=== PATIENT | female | born 1970 | race Hispanic/Latino ===

== ENCOUNTER 2017-09-11 02:56 | Inpatient (IN) | payer MEDICAID ==
[2017-09-11 02:56] VITALS: BMI 31.0
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
[2017-09-11] MEDS ORDERED: HYDROmorphone 1 mg/ml ISec IVP STA (04:02)
[2017-09-11] MEDS ORDERED: HYDROmorphone 1 mg/ml ISec ONE (04:03)
[2017-09-11] MEDS ORDERED: Benzoin Compound Tincture (60 ml) ONE (04:04)
[2017-09-11] MEDS ORDERED: Midazolam 2 MG/2 ML VIAL IVP ONE (04:17)
[2017-09-11] MEDS ORDERED: Ketamine 50 mg/ml Inj (10 ml) IV STA (04:18)
[2017-09-11] MEDS ORDERED: Midazolam 2 MG/2 ML VIAL ONE ×2 (04:21→12:15)
[2017-09-11] MEDS ORDERED: Ketamine 50 mg/ml Inj (10 ml) ONE (04:24)
[2017-09-11 06:23] LABS: BASO % 0.3 % (0.0-2.0); EOS % 0.1 % (0.0-4.0); HEMATOCRIT 42.4 % (34.0-47.0); LYMPH # 1.3 K/uL (1.0-4.3); LYMPH % 8.5 % (20.0-40.0); MEAN CELL VOLUME 90.2 fL (81.0-99.0); MEAN CORPUSCULAR HEMOGLOBIN 30.7 pg (27.0-31.0); MEAN PLATELET VOLUME 8.8 fL (7.2-11.7); MONO # 0.6 K/uL (0.0-0.8); MONO % 4.1 % (0.0-10.0); PLATELET COUNT 206 K/uL (130-400); RED CELL DISTRIBUTION WIDTH 12.7 % (11.5-14.5); WHITE BLOOD COUNT 15.5 K/uL (4.8-10.8)
[2017-09-11 06:43] LABS: ALB/GLOB RATIO 1.5 (1.0-2.1); ALKALINE PHOSPHATASE 121 U/L (38-126); ALT/SGPT 118 U/L (9-52); AST/SGOT 44 U/L (14-36); BILIRUBIN,TOTAL 0.5 mg/dL (0.2-1.3); BLOOD UREA NITROGEN 14 mg/dL (7-17); CALCIUM 8.1 mg/dl (8.6-10.4); CARBON DIOXIDE 24 mmol/L (22-30); CHLORIDE 102 mmol/L (98-107); GFR AFRICAN-AMERICAN > 60; GLUCOSE,RANDOM 376 mg/dL (65-105); POTASSIUM 4.1 mmol/L (3.6-5.2); SODIUM 136 mmol/L (132-148); TOTAL PROTEIN 6.5 g/dL (6.3-8.3)
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
[2017-09-11 07:01] LABS: NEUTROPHIL 85 % (50-75); TOTAL CELLS COUNTED 100
[2017-09-11] MEDS: HYDROmorphone 0.5 mg/0.5 ml ISec IVP PRN (08:36)
--- NOTE | 2017-09-11 09:26 | RAD ---
Chest x-ray two views History: Chest pain. Comparison: None available. Findings: Mild venous congestion. Heart size within normal limits. Degenerative changes in the spine and shoulders. Dislocated left shoulder joint. Impression: Mild venous congestion. Dislocated left shoulder joint.
[2017-09-11 10:47] LABS: RBC URINE 1 /hpf (0-3); URINE BILIRUBIN NEGATIVE (NEGATIVE); URINE BLOOD 1+ (NEGATIVE); URINE COLOR Yellow (YELLOW); URINE GLUCOSE (UA) 3+ mg/dL (Normal); URINE KETONE TRACE mg/dL (NEGATIVE); URINE LEUKOCYTE ESTERASE NEG Leu/uL (Negative); URINE PROTEIN NEGATIVE (NEGATIVE); URINE UROBILINOGEN NORMAL mg/dL (0.2-1.0); WBC URINE < 1 /hpf (0-5)
--- NOTE | 2017-09-11 11:21 | RAD ---
Left humerus 6 views History: Fracture. Comparison: None available. Findings: Complex fracture dislocation of the left proximal humerus with anterior inferior dislocation of the humeral head in relationship to the bony glenoid. Prominently displaced greater tuberosity fracture fragment which appears at the level of the bony glenoid. Acromioclavicular joint space appears preserved. Limited evaluation of the elbow joint space demonstrates prominent degenerative changes with bony spurring noted at the olecranon as well as the tip of the coronoid process. Impression: Complex fracture dislocation of the left proximal humerus with anterior inferior dislocation of the humeral head in relationship to the bony glenoid. Prominently displaced greater tuberosity fracture fragment which appears at the level of the bony glenoid. Acromioclavicular joint space appears preserved. Limited evaluation of the elbow joint space demonstrates prominent degenerative changes with bony spurring noted at the olecranon as well as the tip of the coronoid process.
--- NOTE | 2017-09-11 11:43 | RAD ---
Left shoulder single frontal view History: Postreduction. Comparison: 09/11/2017 Findings: Persistent anterior inferior dislocation of the left proximal humerus in relationship to bony glenoid. Displaced left greater tuberosity fracture fragment articulates with the bony glenoid. Acromioclavicular joint space appears preserved. Impression: Persistent anterior inferior dislocation of the left proximal humerus in relationship to bony glenoid. Displaced left greater tuberosity fracture fragment articulates with the bony glenoid.
[2017-09-11] MEDS ORDERED: Lidocaine 1%/Epinephrine 1:100000 30 ml vial IJ ONE (12:08)
[2017-09-11] MEDS ORDERED: Propofol 10 mg/ml Inj (20 ML) ONE (12:15)
[2017-09-11] MEDS ORDERED: Succinylcholine Chloride 20 mg/ml Syr (5 ml) IV ONE (12:16)
[2017-09-11] MEDS ORDERED: Rocuronium 10 mg/ml (10 ml) ONE ×2 (12:16→13:13)
[2017-09-11] MEDS ORDERED: Lidocaine Hydrochloride 5 ML INJ ONE (12:17)
[2017-09-11] MEDS ORDERED: Lactated Ringer's 1,000 ML IV ONE (12:30)
[2017-09-11] MEDS: Clindamycin 600mg/50ml NS 600 MG/50 ML BAG IVPB ONE ×2 (12:55→13:29)
[2017-09-11] MEDS ORDERED: Phenylephrine 10 mg/ml Inj ONE (13:10)
[2017-09-11] MEDS ORDERED: Clindamycin 600mg/50ml NS 600 MG/50 ML BAG IVPB ONE (14:24)
[2017-09-11] MEDS ORDERED: Bupivacaine HCl 0.5% PF (10 ml) Inj ONE ×2 (14:46)
[2017-09-11] MEDS ORDERED: Neostigmine Methylsulfate 3mg/3ml Syringe IV ONE (14:48)
[2017-09-11] MEDS ORDERED: HYDROmorphone 0.5 mg/0.5 ml ISec IVP PRN (14:53)
[2017-09-11] MEDS ORDERED: Dexamethasone 4 mg/1 ml IVP PRN (14:53)
[2017-09-11] MEDS: (Novolin R) Insulin Human Regular 100 units/ml vial SC SCH ×3 (15:13→21:31)
--- NOTE | 2017-09-11 15:19 | PCM.SURG1 ---
Surgeon's Initial Post Op Note - Surgeon's Notes Surgeon: margaret Clerk Telegraph Service: housekeeping aide Type of Anesthesia: General Endo Pre-Operative Diagnosis: fracture dislocation left shoulder Operative Findings: see dictation Post-Operative Diagnosis: same Operation Performed: ORIF L shoulder Specimen/Specimens Removed: none Estimated Blood Loss: EBL {In ML}: 500 Date of Surgery/Procedure: 09/10/17 Time of Surgery/Procedure: 12:00
--- NOTE | 2017-09-11 15:24 | RAD ---
PROCEDURE: Intraoperative Fluoroscopy. HISTORY: LEFT SHOULDER FX FINDINGS: Fluoroscopic assistance was provided for left proximal humeral fracture repair. Please refer to the operative report from
--- NOTE | 2017-09-11 15:35 | PCM.ANESB1 ---
Interscalene Block - Brachial Plexus Date of Procedure: 09/11/17 Anesthesiologist: óscar Pre-Procedure Diagnosis: left humeral shaft fx Procedure Performed: Interscalene Block of Brachial Plexus Left - Procedure Interscalene Block of Brachial Plexus: This procedure was explained to the patient that it is for post-operative pain management. Consent was obtained after a thorough discussion with the patient regarding the benefits and possible complications of local anesthetic block of the Brachial Plexus at the Interscalene area. The patient was brought to the Operating Room and standard monitors were applied. Time out was held with the circulating nurse to confirm the correct surgery and appropriate block. After applying Oxygen by nasal cannula and administering IV Sedation, the patient's head was gently rotated away from the operative shoulder and the anterior scalene groove was carefully palpated. The ultrasound transducer was then applied to the skin in the transverse plane and the brachial plexus was visualized lateral to the carotid artery and in between the anterior and middle scalene muscles. After identification,the anterior lateral portion of the neck was prepped with Betadine solution three times and Lidocaine 1% was injected subcutaneously for topical analgesia. At this point, a # 22 gauge Stimuplex 2 inches insulated needle was inserted into the interscalene groove and directed in a caudal and midline direction. The needle was inserted lateral to the ultrasound transducer in-plane towards the brachial plexus in a [id number] direction. Needle advancement was performed carefully under direct ultrasound visualization.. After repeated negative aspiration,__5___cc of__.5___, bupivicaine were injected and this was followed with _20____cc of ___.5__% _bupivicaine ____. Under ultrasound guidance the local anesthetics were observed surrounding the roots of the brachial plexus. The needle was removed intact and sterile dressing was applied. The patient had stable vital signs, was conscious and in no apparent distress. The patient tolerated the interscalene block of the bracheal plexus well with stable vital signs and was prepared for subsequent surgery.
[2017-09-11 16:23] VITALS: RESP 20
--- NOTE | 2017-09-11 17:17 | RAD ---
Left shoulder two views History: Postoperative evaluation. Comparison: None available. Findings: Side plate with screw fixation of a left proximal humeral fracture. Humeral head appears located. Acromioclavicular joint space appears preserved. Impression: Postop changes.
[2017-09-12] MEDS: HYDROmorphone 0.5 mg/0.5 ml ISec IVP PRN (05:32)
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
[2017-09-12] MEDS: (Novolin R) Insulin Human Regular 100 units/ml vial SC SCH ×4 (08:31→21:38)
[2017-09-12] MEDS ORDERED: HYDROmorphone 0.5 mg/0.5 ml ISec IVP PRN (09:40)
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
[2017-09-12 14:59] LABS: CHOLESTEROL 147 mg/dL (0-199)
[2017-09-12] MEDS ORDERED: Oxycodone/Acetaminophen 5/325 mg Tab PO PRN (15:42)
--- NOTE | 2017-09-12 15:46 | CP.PCM.PN ---
Subjective - Date & Time of Evaluation Date of Evaluation: 09/12/17 Time of Evaluation: 15:43 - Subjective Subjective: Patient states pain is getting worse (block wearing off) c/o tingling to outer arm. Denies CP/SOB dizziness. Objective - Vital Signs/Intake and Output Vital Signs (last 24 hours): Temp Pulse Resp BP Pulse Ox 98.0 F 98 H 20 124/76 95 09/12/17 07:56 09/12/17 07:56 09/12/17 07:56 09/12/17 07:56 09/12/17 07:56 - Medications Medications: Current Medications Hydromorphone HCl (Dilaudid) 0.5 mg IVP Q4H PRN PRN Reason: Pain, severe (8-10) Last Admin: 09/12/17 11:02 Dose: 0.5 mg Insulin Human Regular (Novolin R) 0 unit SC ACHS SO PRN Reason: Protocol Last Admin: 09/12/17 12:14 Dose: 3 unit Ketorolac Tromethamine (Toradol) 30 mg IVP Q6 [facility] Lisinopril (Zestril) 2.5 mg PO DAILY [facility] Oxycodone/Acetaminophen (Percocet 5/325 Mg Tab) 2 tab PO Q4H PRN PRN Reason: Pain, moderate (4-7) Stop: 09/15/17 15:43 Pantoprazole Sodium (Protonix Inj) 40 mg IVP DAILY [facility] Last Admin: 09/12/17 10:10 Dose: 40 mg Rosuvastatin Calcium (Crestor) 2.5 mg PO HS [facility] Tramadol HCl (Ultram) 50 mg PO TID PRN PRN Reason: Pain, moderate (4-7) Last Admin: 09/12/17 10:08 Dose: 50 mg - Labs Labs: 09/11/17 06:20 09/11/17 06:20 PT 11.6 SECONDS (9.7-12.2) 09/11/17 06:20 INR 1.0 09/11/17 06:20 - Extremities Exam Additional comments: +ROM fitgners/wrist, sensation intacty to rad/med/ulnar nerve, numb to ax nerve lateral arm. +radial pulse Assessment and Plan (1) Fracture of proximal end of left humerus Assessment & Plan: POD# 1 s/p ORIF -lateral arm numbness to be monitored, poss residual from block -orthopedically stbale -sling pain meds pt/ot d/w Dr. Bradley to f/u in offce next tuesday Status: Acute (2) Shoulder dislocation Status: Acute
[2017-09-12 17:46] LABS: HEMATOCRIT 35.9 % (34.0-47.0); MEAN CELL VOLUME 91.1 fL (81.0-99.0); MEAN CORPUSCULAR HEMOGLOBIN 30.6 pg (27.0-31.0); MEAN CORPUSCULAR HGB CONC 33.6 g/dL (33.0-37.0); WHITE BLOOD COUNT 14.1 K/uL (4.8-10.8)
[2017-09-12 18:57] LABS: BLOOD UREA NITROGEN 9 mg/dL (7-17); CALCIUM 7.6 mg/dl (8.6-10.4); CARBON DIOXIDE 28 mmol/L (22-30); CHLORIDE 98 mmol/L (98-107); GFR AFRICAN-AMERICAN > 60; GLUCOSE,RANDOM 242 mg/dL (65-105); POTASSIUM 3.7 mmol/L (3.6-5.2); SODIUM 132 mmol/L (132-148)
[2017-09-12] MEDS: Rosuvastatin Calcium 2.5 mg Tab PO SCH (21:35)
--- NOTE | 2017-09-12 22:17 | CARD ---
APPROVED REPORT EKG Measurement Heart [id number] ID [id number] <Conclusion> Normal sinus rhythm with sinus arrhythmia Possible Left atrial enlargement Possible Anterior infarct, age undetermined Abnormal ECG
--- NOTE | 2017-09-13 06:51 | CP.PCM.PN ---
<Ning Chavez - Last Filed: 09/13/17 07:44> Subjective - Date & Time of Evaluation Date of Evaluation: 09/13/17 Time of Evaluation: 06:47 - Subjective Subjective: PGY2 progress note for cardiology, Dr. iBlly Pt is seen and examined at bedside. No acute events overnight. Pt continues to complain of left shoulder pain and numbness over left shoulder. denies having any CP, SOB, abd pain, N/v/D/C, LE pain or swelling. 12 point ROS are negative except for the above mentioned. Objective - Vital Signs/Intake and Output Vital Signs (last 24 hours): Temp Pulse Resp BP Pulse Ox 98.6 F 93 H 20 109/70 96 09/12/17 23:40 09/12/17 23:40 09/12/17 23:40 09/12/17 23:40 09/12/17 23:40 Intake and Output: 09/12/17 09/13/17 18:59 06:59 Intake Total 0 Balance 0 - Medications Medications: Current Medications Calcium/Vitamin D (Oscal-D 250 Mg-125 Units Tab) 1 tab PO DAILY [facility] Gabapentin (Neurontin) 600 mg PO TID [facility] Hydromorphone HCl (Dilaudid) 0.5 mg IVP Q4H PRN PRN Reason: Pain, severe (8-10) Last Admin: 09/12/17 11:02 Dose: 0.5 mg Insulin Human Regular (Novolin R) 0 unit SC ACHS [facility] PRN Reason: Protocol Last Admin: 09/12/17 21:38 Dose: Not Given Ketorolac Tromethamine (Toradol) 30 mg IVP Q6 [facility] Last Admin: 09/13/17 06:24 Dose: 30 mg Lidocaine (Lidoderm) 1 ea TD DAILY [facility] Lisinopril (Zestril) 2.5 mg PO DAILY [facility] Oxycodone/Acetaminophen (Percocet 5/325 Mg Tab) 2 tab PO Q4H PRN PRN Reason: Pain, moderate (4-7) Stop: 09/15/17 15:43 Pantoprazole Sodium (Protonix Inj) 40 mg IVP DAILY [facility] Last Admin: 09/12/17 10:10 Dose: 40 mg Rosuvastatin Calcium (Crestor) 2.5 mg PO HS [facility] Last Admin: 09/12/17 21:35 Dose: 2.5 mg Tramadol HCl (Ultram) 50 mg PO TID PRN PRN Reason: Pain, moderate (4-7) Last Admin: 09/12/17 19:51 Dose: 50 mg - Labs Labs: 09/12/17 14:29 09/12/17 14:29 PT 11.6 SECONDS (9.7-12.2) 09/11/17 06:20 INR 1.0 09/11/17 06:20 - Constitutional Appears: Non-toxic, No Acute Distress - Head Exam Head Exam: ATRAUMATIC, NORMAL INSPECTION - ENT Exam ENT Exam: Mucous Membranes Moist - Respiratory Exam Respiratory Exam: Clear to Ausculation Bilateral, NORMAL BREATHING PATTERN. absent: Rales, Rhonchi, Wheezes - Cardiovascular Exam Cardiovascular Exam: REGULAR RHYTHM, +S1, +S2. absent: Gallop, Rubs, Murmur - GI/Abdominal Exam GI & Abdominal Exam: Soft, Normal Bowel Sounds. absent: Distended, Firm, Guarding, Rigid, Tenderness, Organomegaly - Extremities Exam Extremities Exam: absent: Pedal Edema, Tenderness - Neurological Exam Neurological Exam: Alert, Awake, Oriented x3 - Psychiatric Exam Psychiatric exam: Normal Affect, Normal Mood - Skin Skin Exam: Dry, Intact, Normal Color, Warm Assessment and Plan - Assessment and Plan (Free Text) Assessment: 46 year old female with past medical history of diabetes and HTN is being seen for poor R wave progression noted on EKG in ED. 1. EKG changes R/O CAD - Poor r wave progression likely 2/2 poor lead placement - Echo pending 2. DM - Hgb A1c is noted ot be 10.1 - LDL 101, cholestrol 147, Tg 127, HDL 37 - ASCVD risk: 4.2% risk of cardiovascular event in 10 yrs - ISS - Accuchecks - Pt started on ACEI and statin 3. Left humeral fracture s/p ORIF POD #2 - Continue pain management per ortho 4. Tobacco abuse - discussed risks of tobacco abuse and recommended cessation All recommendations and orders per Dr. Billy <Mahendra Billy - Last Filed: 09/14/17 00:54> Objective - Vital Signs/Intake and Output Vital Signs (last 24 hours): Temp Pulse Resp BP Pulse Ox 98.5 F 81 20 114/69 97 09/13/17 23:25 09/13/17 23:25 09/13/17 23:25 09/13/17 23:25 09/13/17 23:25 Intake and Output: 09/13/17 09/14/17 18:59 06:59 Intake Total 1640 Balance 1640 - Medications Medications: Current Medications Calcium/Vitamin D (Oscal-D 250 Mg-125 Units Tab) 1 tab PO DAILY [facility] Last Admin: 09/13/17 10:08 Dose: 1 tab Fluconazole (Diflucan) 150 mg PO DAILY [facility] Stop: 09/15/17 10:00 Last Admin: 09/13/17 19:29 Dose: 150 mg Gabapentin (Neurontin) 600 mg PO TID [facility] Last Admin: 09/13/17 17:29 Dose: 600 mg Hydromorphone HCl (Dilaudid) 0.5 mg IVP Q4H PRN PRN Reason: Pain, severe (8-10) Last Admin: 09/13/17 13:16 Dose: 0.5 mg Sodium Chloride (Sodium Chloride 0.9%) 1,000 mls @ 80 mls/hr IV .[id number] [facility] Last Admin: 09/14/17 00:44 Dose: 80 mls/hr Insulin Human Regular (Novolin R) 0 unit SC ACHS [facility] PRN Reason: Protocol Last Admin: 09/13/17 21:45 Dose: Not Given Ketorolac Tromethamine (Toradol) 30 mg IVP Q6 [facility] Last Admin: 09/14/17 00:40 Dose: Not Given Lidocaine (Lidoderm) 1 ea TD DAILY [facility] Last Admin: 09/13/17 14:34 Dose: 1 ea Lisinopril (Zestril) 2.5 mg PO DAILY [facility] Last Admin: 09/13/17 10:07 Dose: 2.5 mg Oxycodone/Acetaminophen (Percocet 5/325 Mg Tab) 2 tab PO Q4H PRN PRN Reason: Pain, moderate (4-7) Stop: 09/15/17 15:43 Pantoprazole Sodium (Protonix Inj) 40 mg IVP DAILY [facility] Last Admin: 09/13/17 10:08 Dose: 40 mg Rosuvastatin Calcium (Crestor) 2.5 mg PO HS [facility] Last Admin: 09/13/17 21:45 Dose: Not Given Tramadol HCl (Ultram) 50 mg PO TID PRN PRN Reason: Pain, moderate (4-7) Last Admin: 09/13/17 19:28 Dose: 50 mg - Labs Labs: 09/13/17 08:17 09/13/17 08:16 PT 11.6 SECONDS (9.7-12.2) 09/11/17 06:20 INR 1.0 09/11/17 06:20 Attending/Attestation - Attestation I have personally seen and examined this patient.: Yes I have fully participated in the care of the patient.: Yes I have reviewed all pertinent clinical information, including history, physical exam and plan: Yes
--- NOTE | 2017-09-13 07:49 | OP ---
PROCEDURE DATE: 09/11/2017 PREOPERATIVE DIAGNOSIS: Displaced left proximal shaft fracture with shoulder. POSTOPERATIVE DIAGNOSIS: Displaced left proximal shaft fracture with shoulder. PROCEDURES: 1. Left shoulder open reduction and internal fixation greater tuberosity requiring Synthes . 2. Fluoroscopy greater than . SURGEON: Alex Bradley MD. GARBAGE COLLECTOR: and Podiatry. TYPE OF ANESTHESIA: General. BLOOD LOSS: 500 mL. SPECIMENS: None. COMPLICATIONS: None. DISPOSITION: Stable to recovery room. INDICATIONS: This is a 46 year old female who ____ left shoulder and ____. Informed consent was obtained. DESCRIPTION OF PROCEDURE: The patient was brought to the operating room and placed supine on the operating room table in a beach-chair. After prophylactic antibiotics were given, the left upper extremity was prepped and draped in the standard surgical fashion. A deltopectoral line of incision was outlined. Incision was made on the skin only. All superficial veins were cauterized. Incision was carried down after identifying ____ with blunt dissection. The fracture zone was identified. There was____ abraded at the greater tuberosity level____. Greater tuberosity humeral head ____. After reduction was confirmed, 3.5 cortical screws were placed into the distal , compressing the fascia anatomical position. After this, proximal locking holes were drilled with locking screws in AO standard fashion. Those screws were measured to appropriate length. No screw penetrance was identified ____. After these were placed, the shoulder was again taken through full range of motion and ____ rotation. Fluoroscopy then confirmed proper alignment of the shoulder joint and anatomic . The stay sutures were tied back adding additional stability to the ____ supraspinatus of the rotator cuff . The wound was then copiously irrigated. Hemostasis was obtained with electrocautery. Deep layers of the wound were closed with 2 0 Vicryl interrupted sutures followed by 2 0 subcuticular suture and 3 0 running Monocryl followed by stefanie for the skin. Steri Strips were applied and sterile dressing. The patient was placed into a . The patient tolerated the ____left upper extremity . Due to the patient's morbid obesity, this procedure was more difficult than the standard shoulder surgery and this required extra time doing prepping and draping as well as an extended operative time . Alex Bradley MD
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
[2017-09-13 08:31] LABS: BASO % 0.4 % (0.0-2.0); EOS # 0.1 K/uL (0.0-0.7); EOS % 1.1 % (0.0-4.0); HEMATOCRIT 34.2 % (34.0-47.0); LYMPH # 1.9 K/uL (1.0-4.3); LYMPH % 17.3 % (20.0-40.0); MEAN CELL VOLUME 90.3 fL (81.0-99.0); MEAN CORPUSCULAR HEMOGLOBIN 31.5 pg (27.0-31.0); MEAN CORPUSCULAR HGB CONC 34.9 g/dL (33.0-37.0); MEAN PLATELET VOLUME 8.8 fL (7.2-11.7); MONO # 0.8 K/uL (0.0-0.8); MONO % 7.7 % (0.0-10.0); RED CELL DISTRIBUTION WIDTH 12.8 % (11.5-14.5); WHITE BLOOD COUNT 10.8 K/uL (4.8-10.8)
[2017-09-13] MEDS: (Novolin R) Insulin Human Regular 100 units/ml vial SC SCH ×4 (08:32→21:45)
[2017-09-13 09:03] LABS: ALB/GLOB RATIO 0.9 (1.0-2.1); ALKALINE PHOSPHATASE 82 U/L (38-126); ALT/SGPT 69 U/L (9-52); AST/SGOT 27 U/L (14-36); BILIRUBIN,TOTAL 0.7 mg/dL (0.2-1.3); BLOOD UREA NITROGEN 10 mg/dL (7-17); CALCIUM 7.7 mg/dl (8.6-10.4); CARBON DIOXIDE 28 mmol/L (22-30); CHLORIDE 96 mmol/L (98-107); GFR AFRICAN-AMERICAN > 60; GLUCOSE,RANDOM 251 mg/dL (65-105); POTASSIUM 3.7 mmol/L (3.6-5.2); SODIUM 128 mmol/L (132-148); TOTAL PROTEIN 6.7 g/dL (6.3-8.3)
[2017-09-13] MEDS: Lidocaine 5% Patch TD SCH ×2 (10:07→14:34)
[2017-09-13] MEDS: Calcium-Vit D 250 mg-125 Units Tab UD PO SCH (10:08)
[2017-09-13] MEDS: Sodium Chloride 0.9% 1,000 ML IV SCH (11:31)
[2017-09-13 16:14] VITALS: O2SAT 97
[2017-09-13] MEDS: Rosuvastatin Calcium 2.5 mg Tab PO SCH ×2 (19:30→21:45)
[2017-09-14] MEDS: Sodium Chloride 0.9% 1,000 ML IV SCH ×2 (00:44→14:51)
--- NOTE | 2017-09-14 03:49 | PN ---
DATE: 09/13/2017 SUBJECTIVE: The patient is seen and examined on the bedside. Looking anxious because of pain in the left shoulder and numbness around the shoulder. Denies having chest pain, shortness of breath. No abdominal pain, nausea, vomiting, or diarrhea. No hematuria or hematochezia. No swelling of the lower extremities. REVIEW OF SYSTEMS: A 12-point review of systems is negative except for the above mentioned. No fever. No chills. PHYSICAL EXAMINATION: VITAL SIGNS: Temperature 98.6, pulse 93, respiratory rate 20, blood pressure 109/70, and pulse oximetry 96. HEENT: Head: Normocephalic, atraumatic. Eyes: PERRLA. Extraocular muscles intact. Conjunctivae clear. Nose patent. Mucous membranes moist. NECK: Supple. No carotid bruit. No JVD or thyromegaly. CHEST: Bilaterally symmetrical. HEART: S1 and S2 positive. LUNGS: Clear to auscultation. ABDOMEN: Soft. Bowel sounds present. No organomegaly. EXTREMITIES: No edema. No cyanosis. NEUROLOGIC: The patient is awake and alert. Moving all 4 extremities except left upper extremity. MEDICATIONS: Vitamin D, Dilaudid, insulin, Toradol, Lidoderm, Zestril, oxycodone, pantoprazole, Crestor, and tramadol. LABORATORY DATA: White blood cells 14.1, hemoglobin 12.1, hematocrit 35.9, platelets 190. Sodium 132, potassium 3.7, BUN 9, creatinine 0.5, glucose 242. ASSESSMENT AND PLAN: Ms. Brandy Carter is a 46-year-old lady with leukocytosis, hyperglycemia with history of diabetes mellitus, hypotension, has poor R-wave progression noted on EKG in Emergency Department, rule out coronary artery disease. Echocardiography done, result are pending. Hemoglobin A1c is 10.1 and it shows uncontrolled diabetes mellitus type 2. Electrical Integrator, Dr. Mahendra Billy, is on the case. He started the patient on angiotensin-converting enzyme inhibitors and statin. Left humeral fracture status post open reduction internal fixation postoperative day #2. Continue pain management per Orthopedics and physical therapy as per Orthopedics. The patient is still able to move her hand and h/o tobacco abuse, urged to quit smoking. The patient was seen by the Orthopedics, by Dr. Alex Bradley. The patient's block is wearing off. May be she is getting pain. Surgery was done by Dr. Kelsey for displaced shoulder, and the patient's fracture of the proximal and of the left humerus. The patient still has sling. Gastrointestinal and deep-vein thrombosis prophylaxis. The patient was seen and examined on 09/13/2017. Ese Sandoval MD MTDD
[2017-09-14 06:34] LABS: HEMATOCRIT 32.7 % (34.0-47.0); MEAN CELL VOLUME 90.3 fL (81.0-99.0); MEAN CORPUSCULAR HEMOGLOBIN 31.3 pg (27.0-31.0); MEAN CORPUSCULAR HGB CONC 34.7 g/dL (33.0-37.0); MEAN PLATELET VOLUME 8.9 fL (7.2-11.7); RED CELL DISTRIBUTION WIDTH 12.8 % (11.5-14.5); WHITE BLOOD COUNT 10.2 K/uL (4.8-10.8)
[2017-09-14 07:03] LABS: ALB/GLOB RATIO 1.2 (1.0-2.1); ALKALINE PHOSPHATASE 77 U/L (38-126); ALT/SGPT 45 U/L (9-52); AST/SGOT 27 U/L (14-36); BILIRUBIN,TOTAL 0.6 mg/dL (0.2-1.3); BLOOD UREA NITROGEN 14 mg/dL (7-17); CALCIUM 7.7 mg/dl (8.6-10.4); CARBON DIOXIDE 25 mmol/L (22-30); CHLORIDE 99 mmol/L (98-107); GFR AFRICAN-AMERICAN > 60; GLUCOSE,RANDOM 323 mg/dL (65-105); POTASSIUM 3.8 mmol/L (3.6-5.2); SODIUM 127 mmol/L (132-148); TOTAL PROTEIN 5.3 g/dL (6.3-8.3)
[2017-09-14 07:45] VITALS: TEMP 97.5
--- NOTE | 2017-09-14 08:51 | CP.PCM.PN ---
<Ning Chavez - Last Filed: 09/14/17 08:52> Subjective - Date & Time of Evaluation Date of Evaluation: 09/14/17 Time of Evaluation: 08:52 - Subjective Subjective: PGY2 progress note for cardiology, Dr. Billy Pt is seen and examined at bedside. No acute events overnight. Pt was unable to complete echo yesterday due to immobility and pain of left arm. Pt denies having any CP, SOB, abd pain, N/V/D/C. Continues to c/o left shoulder pain. 12 point ROS negative except for the above mentioned. Objective - Vital Signs/Intake and Output Vital Signs (last 24 hours): Temp Pulse Resp BP Pulse Ox 97.5 F L 77 20 180/69 H 97 09/14/17 07:05 09/14/17 07:05 09/14/17 07:05 09/14/17 07:05 09/14/17 07:05 Intake and Output: 09/14/17 09/14/17 06:59 18:59 Intake Total 2580 Balance 2580 - Medications Medications: Current Medications Calcium/Vitamin D (Oscal-D 250 Mg-125 Units Tab) 1 tab PO DAILY [facility] Last Admin: 09/13/17 10:08 Dose: 1 tab Fluconazole (Diflucan) 150 mg PO DAILY SO Stop: 09/15/17 10:00 Last Admin: 09/13/17 19:29 Dose: 150 mg Gabapentin (Neurontin) 600 mg PO TID [facility] Last Admin: 09/13/17 17:29 Dose: 600 mg Hydromorphone HCl (Dilaudid) 0.5 mg IVP Q4H PRN PRN Reason: Pain, severe (8-10) Last Admin: 09/13/17 13:16 Dose: 0.5 mg Sodium Chloride (Sodium Chloride 0.9%) 1,000 mls @ 80 mls/hr IV .[id number] [facility] Last Admin: 09/14/17 00:44 Dose: 80 mls/hr Insulin Human Regular (Novolin R) 0 unit SC ACHS SO PRN Reason: Protocol Last Admin: 09/13/17 21:45 Dose: Not Given Ketorolac Tromethamine (Toradol) 30 mg IVP Q6 [facility] Last Admin: 09/14/17 02:24 Dose: 30 mg Lidocaine (Lidoderm) 1 ea TD DAILY [facility] Last Admin: 09/13/17 14:34 Dose: 1 ea Lisinopril (Zestril) 2.5 mg PO DAILY [facility] Last Admin: 09/13/17 10:07 Dose: 2.5 mg Oxycodone/Acetaminophen (Percocet 5/325 Mg Tab) 2 tab PO Q4H PRN PRN Reason: Pain, moderate (4-7) Stop: 09/15/17 15:43 Pantoprazole Sodium (Protonix Inj) 40 mg IVP DAILY [facility] Last Admin: 09/13/17 10:08 Dose: 40 mg Rosuvastatin Calcium (Crestor) 2.5 mg PO HS [facility] Last Admin: 09/13/17 21:45 Dose: Not Given Tramadol HCl (Ultram) 50 mg PO TID PRN PRN Reason: Pain, moderate (4-7) Last Admin: 09/13/17 19:28 Dose: 50 mg - Labs Labs: 09/14/17 06:26 09/14/17 06:26 PT 11.6 SECONDS (9.7-12.2) 09/11/17 06:20 INR 1.0 09/11/17 06:20 - Constitutional Appears: Non-toxic, No Acute Distress - Head Exam Head Exam: ATRAUMATIC - ENT Exam ENT Exam: Mucous Membranes Moist - Respiratory Exam Respiratory Exam: Clear to Ausculation Bilateral, NORMAL BREATHING PATTERN. absent: Accessory Muscle Use, Rales, Rhonchi, Wheezes, Respiratory Distress - Cardiovascular Exam Cardiovascular Exam: REGULAR RHYTHM, +S1, +S2. absent: Gallop, Rubs, Murmur - GI/Abdominal Exam GI & Abdominal Exam: Soft, Normal Bowel Sounds. absent: Distended, Firm, Guarding, Rigid, Tenderness, Organomegaly - Extremities Exam Extremities Exam: absent: Pedal Edema, Tenderness - Neurological Exam Neurological Exam: Alert, Awake, Oriented x3 - Psychiatric Exam Psychiatric exam: Normal Affect, Normal Mood - Skin Skin Exam: Dry, Intact, Normal Color, Warm Assessment and Plan - Assessment and Plan (Free Text) Assessment: 46 year old female with past medical history of diabetes and HTN is being seen for poor R wave progression noted on EKG in ED. 1. EKG changes R/O CAD - Poor r wave progression likely 2/2 poor lead placement 2. DM - Hgb A1c is noted ot be 10.1 - LDL 101, cholestrol 147, Tg 127, HDL 37 - ASCVD risk: 4.2% risk of cardiovascular event in 10 yrs - ISS - Accuchecks - Continue ACEI and statin 3. Left humeral fracture s/p ORIF POD #2 - Continue pain management per ortho 4. Tobacco abuse - discussed risks of tobacco abuse and recommended cessation All recommendations and orders per Dr. Billy <Mahendra Billy - Last Filed: 09/14/17 13:13> Objective - Vital Signs/Intake and Output Vital Signs (last 24 hours): Temp Pulse Resp BP Pulse Ox 97.5 F L 70 20 116/74 97 09/14/17 07:05 09/14/17 10:45 09/14/17 07:05 09/14/17 10:45 09/14/17 07:05 Intake and Output: 09/14/17 09/14/17 06:59 18:59 Intake Total 2580 Balance 2580 - Medications Medications: Current Medications Calcium/Vitamin D (Oscal-D 250 Mg-125 Units Tab) 1 tab PO DAILY [facility] Last Admin: 09/14/17 10:21 Dose: 1 tab Fluconazole (Diflucan) 150 mg PO DAILY [facility] Stop: 09/15/17 10:00 Last Admin: 09/14/17 10:23 Dose: 150 mg Gabapentin (Neurontin) 600 mg PO TID [facility] Last Admin: 09/14/17 10:20 Dose: 600 mg Hydromorphone HCl (Dilaudid) 0.5 mg IVP Q4H PRN PRN Reason: Pain, severe (8-10) Last Admin: 09/13/17 13:16 Dose: 0.5 mg Sodium Chloride (Sodium Chloride 0.9%) 1,000 mls @ 80 mls/hr IV .[id number] [facility] Last Admin: 09/14/17 00:44 Dose: 80 mls/hr Insulin Human Regular (Novolin R) 0 unit SC ACHS SO PRN Reason: Protocol Last Admin: 09/14/17 11:57 Dose: 2 unit Ketorolac Tromethamine (Toradol) 30 mg IVP Q6 [facility] Last Admin: 09/14/17 12:43 Dose: Not Given Lidocaine (Lidoderm) 1 ea TD DAILY [facility] Last Admin: 09/14/17 10:28 Dose: 1 ea Lisinopril (Zestril) 2.5 mg PO DAILY [facility] Last Admin: 09/14/17 10:21 Dose: 2.5 mg Oxycodone/Acetaminophen (Percocet 5/325 Mg Tab) 2 tab PO Q4H PRN PRN Reason: Pain, moderate (4-7) Stop: 09/15/17 15:43 Pantoprazole Sodium (Protonix Inj) 40 mg IVP DAILY [facility] Last Admin: 09/14/17 10:21 Dose: 40 mg Rosuvastatin Calcium (Crestor) 2.5 mg PO HS [facility] Last Admin: 09/13/17 21:45 Dose: Not Given Tramadol HCl (Ultram) 50 mg PO TID PRN PRN Reason: Pain, moderate (4-7) Last Admin: 09/13/17 19:28 Dose: 50 mg - Labs Labs: 09/14/17 06:26 09/14/17 06:26 PT 11.6 SECONDS (9.7-12.2) 09/11/17 06:20 INR 1.0 09/11/17 06:20 Attending/Attestation - Attestation I have personally seen and examined this patient.: Yes I have fully participated in the care of the patient.: Yes I have reviewed all pertinent clinical information, including history, physical exam and plan: Yes Notes (Text): 09/14/17 13:13 outpt f/u for echo
[2017-09-14] MEDS: (Novolin R) Insulin Human Regular 100 units/ml vial SC SCH ×2 (09:02→11:57)
[2017-09-14] MEDS: Calcium-Vit D 250 mg-125 Units Tab UD PO SCH (10:21)
[2017-09-14] MEDS: Lidocaine 5% Patch TD SCH (10:28)
[2017-09-14 10:45] VITALS: BP 116/74; PULSE 70
--- NOTE | 2017-09-14 14:36 | CP.PCM.PN ---
Subjective - Date & Time of Evaluation Date of Evaluation: 09/14/17 Time of Evaluation: 14:51 - Subjective Subjective: Patient states pain is improving. She says she still has some numbness in her outer arm, no change. She requests work note to return for 2 days, then is off for 10 days. 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 Work note given to return on 09/15 with restrictions of no use of left arm, and sling at all time. Patient instructed to remove sling only for bathing. Pt has f /u appt on 09/[address] Bradley Objective - Vital Signs/Intake and Output Vital Signs (last 24 hours): Temp Pulse Resp BP Pulse Ox 97.5 F L 70 20 116/74 97 09/14/17 07:05 09/14/17 10:45 09/14/17 07:05 09/14/17 10:45 09/14/17 07:05 Intake and Output: 09/14/17 09/14/17 06:59 18:59 Intake Total 2580 Balance 2580 - Medications Medications: Current Medications Calcium/Vitamin D (Oscal-D 250 Mg-125 Units Tab) 1 tab PO DAILY [facility] Last Admin: 09/14/17 10:21 Dose: 1 tab Fluconazole (Diflucan) 150 mg PO DAILY [facility] Stop: 09/15/17 10:00 Last Admin: 09/14/17 10:23 Dose: 150 mg Gabapentin (Neurontin) 600 mg PO TID [facility] Last Admin: 09/14/17 13:40 Dose: 600 mg Hydromorphone HCl (Dilaudid) 0.5 mg IVP Q4H PRN PRN Reason: Pain, severe (8-10) Last Admin: 09/13/17 13:16 Dose: 0.5 mg Sodium Chloride (Sodium Chloride 0.9%) 1,000 mls @ 80 mls/hr IV .[id number] [facility] Last Admin: 09/14/17 00:44 Dose: 80 mls/hr Insulin Human Regular (Novolin R) 0 unit SC ACHS SO PRN Reason: Protocol Last Admin: 09/14/17 11:57 Dose: 2 unit Ketorolac Tromethamine (Toradol) 30 mg IVP Q6 [facility] Last Admin: 09/14/17 12:43 Dose: Not Given Lidocaine (Lidoderm) 1 ea TD DAILY [facility] Last Admin: 09/14/17 10:28 Dose: 1 ea Lisinopril (Zestril) 2.5 mg PO DAILY [facility] Last Admin: 09/14/17 10:21 Dose: 2.5 mg Oxycodone/Acetaminophen (Percocet 5/325 Mg Tab) 2 tab PO Q4H PRN PRN Reason: Pain, moderate (4-7) Stop: 09/15/17 15:43 Pantoprazole Sodium (Protonix Inj) 40 mg IVP DAILY [facility] Last Admin: 09/14/17 10:21 Dose: 40 mg Rosuvastatin Calcium (Crestor) 2.5 mg PO HS [facility] Last Admin: 09/13/17 21:45 Dose: Not Given Tramadol HCl (Ultram) 50 mg PO TID PRN PRN Reason: Pain, moderate (4-7) Last Admin: 09/13/17 19:28 Dose: 50 mg - Labs Labs: 09/14/17 06:26 09/14/17 06:26 PT 11.6 SECONDS (9.7-12.2) 09/11/17 06:20 INR 1.0 09/11/17 06:20 - Extremities Exam Additional comments: LUE: dressing changed. Incision intact, dry, no erythema, new dressing applied. Paresthesias to lat shoulder, otherwise intat. +ROM fingers/wrist, +radial pulse Assessment and Plan (1) Fracture of proximal end of left humerus Assessment & Plan: POD#3 s/p left prox humerus ORIF -ortho stable for d/c home -return to work only with strict restrictions -patient states she tolerates oxycodone better than percocet and vicodin, rx given -advised patient not to take narcotics if she will be working or driving, and that she can take motrin during the day [place] [employer] reviewed, last rx november 2016 -Patient counseled on the risks of addiction, physical or psychological dependence, and overdose associated with opioid drugs and the danger of taking opioid drugs with alcohol and other central nervous system depressants, and cautioned patient on storage and disposal. Status: Acute (2) Shoulder dislocation Status: Acute
--- NOTE | 2017-09-14 15:07 | CP.PCM.PN ---
Subjective - Date & Time of Evaluation Date of Evaluation: 09/14/17 Time of Evaluation: 11:45 - Subjective Subjective: NATIONAL ACCOUNT REPRESENTATIVE NOTES Pt seen today , denies any chest pain, sob, c/o pain to the Left UE, controlled with pain medication s/p left prox humerus ORIF,POD#3 seen by ortho cleared for discharge home today and f/u with Dr. Kelsey office on seen by Reina today stable for discharge home today and f/u with Dr. Huang office on 09/20 Objective - Vital Signs/Intake and Output Vital Signs (last 24 hours): Temp Pulse Resp BP Pulse Ox 97.5 F L 70 20 116/74 97 09/14/17 07:05 09/14/17 10:45 09/14/17 07:05 09/14/17 10:45 09/14/17 07:05 Intake and Output: 09/14/17 09/14/17 06:59 18:59 Intake Total 2580 Balance 2580 - Medications Medications: Current Medications Calcium/Vitamin D (Oscal-D 250 Mg-125 Units Tab) 1 tab PO DAILY [facility] Last Admin: 09/14/17 10:21 Dose: 1 tab Fluconazole (Diflucan) 150 mg PO DAILY [facility] Stop: 09/15/17 10:00 Last Admin: 09/14/17 10:23 Dose: 150 mg Gabapentin (Neurontin) 600 mg PO TID [facility] Last Admin: 09/14/17 13:40 Dose: 600 mg Hydromorphone HCl (Dilaudid) 0.5 mg IVP Q4H PRN PRN Reason: Pain, severe (8-10) Last Admin: 09/13/17 13:16 Dose: 0.5 mg Sodium Chloride (Sodium Chloride 0.9%) 1,000 mls @ 80 mls/hr IV .[id number] [facility] Last Admin: 09/14/17 14:51 Dose: Not Given Insulin Human Regular (Novolin R) 0 unit SC ACHS SO PRN Reason: Protocol Last Admin: 09/14/17 11:57 Dose: 2 unit Ketorolac Tromethamine (Toradol) 30 mg IVP Q6 [facility] Last Admin: 09/14/17 12:43 Dose: Not Given Lidocaine (Lidoderm) 1 ea TD DAILY [facility] Last Admin: 09/14/17 10:28 Dose: 1 ea Lisinopril (Zestril) 2.5 mg PO DAILY [facility] Last Admin: 09/14/17 10:21 Dose: 2.5 mg Oxycodone/Acetaminophen (Percocet 5/325 Mg Tab) 2 tab PO Q4H PRN PRN Reason: Pain, moderate (4-7) Stop: 09/15/17 15:43 Pantoprazole Sodium (Protonix Inj) 40 mg IVP DAILY [facility] Last Admin: 09/14/17 10:21 Dose: 40 mg Rosuvastatin Calcium (Crestor) 2.5 mg PO HS [facility] Last Admin: 09/13/17 21:45 Dose: Not Given Tramadol HCl (Ultram) 50 mg PO TID PRN PRN Reason: Pain, moderate (4-7) Last Admin: 09/13/17 19:28 Dose: 50 mg - Labs Labs: 09/14/17 06:26 09/14/17 06:26 PT 11.6 SECONDS (9.7-12.2) 09/11/17 06:20 INR 1.0 09/11/17 06:20
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
== END 2017-09-14 16:25 | disposition home or self-care (01) | DRG 218 ==
LOC: C.ER 02:56 → C.6T 06:01
PROVIDERS: ADMIT Internal Medicine; ATTEND Internal Medicine
PROC: 0PSD04Z Reposition Left Humeral Head with Internal Fixation Device, Open Approach (ICD-10-PCS; principal; 2017-09-12)
PROC: 3E0T3BZ Introduction of Anesthetic Agent into Peripheral Nerves and Plexi, Percutaneous Approach (ICD-10-PCS; 2017-09-12)
DX: S42.292A Other displaced fracture of upper end of left humerus, initial encounter for closed fracture (principal); E11.65 Type 2 diabetes mellitus with hyperglycemia; E87.1 Hypo-osmolality and hyponatremia; E83.51 Hypocalcemia; B37.3 Candidiasis of vulva and vagina; S43.036A Inferior dislocation of unspecified humerus, initial encounter; Y04.2XXA Assault by strike against or bumped into by another person, initial encounter; Y92.9 Unspecified place or not applicable; D72.829 Elevated white blood cell count, unspecified; I10 Essential (primary) hypertension; I25.10 Atherosclerotic heart disease of native coronary artery without angina pectoris; F17.210 Nicotine dependence, cigarettes, uncomplicated; Z90.49 Acquired absence of other specified parts of digestive tract